=== PATIENT | male | born 1990 | race American Indian/Alaskan Native ===

== ENCOUNTER 2019-10-07 17:17 | Emergency (ER) | payer OTHER ==
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
[2019-10-07 21:07] VITALS: BP 124/76
== END 2019-10-07 21:26 | disposition home or self-care (01) ==
LOC: ED 17:17
DX: S63.621A Sprain of interphalangeal joint of right thumb, initial encounter (principal); S39.012A Strain of muscle, fascia and tendon of lower back, initial encounter; L03.113 Cellulitis of right upper limb; V89.2XXA Person injured in unspecified motor-vehicle accident, traffic, initial encounter; Y93.89 Activity, other specified; Y92.410 Unspecified street and highway as the place of occurrence of the external cause; Y99.8 Other external cause status
CPT/HCPCS: 72100

== ENCOUNTER 2020-05-06 11:16 | Emergency (ER) | payer OTHER ==
[2020-05-06 13:01] VITALS: BP 135/72
== END 2020-05-06 14:06 | disposition left against medical advice (07) ==
LOC: ED 11:16
DX: R52 Pain, unspecified (principal); Z53.21 Procedure and treatment not carried out due to patient leaving prior to being seen by health care provider